=== PATIENT | male | born 1985 | race Caucasian/White ===

== ENCOUNTER 2021-02-14 13:09 | Emergency (ER) | payer OTHER, SELFPAY ==
--- NOTE | 2021-02-14 | ECG_ITS ---
Test Reason : CHEST PAIN Blood Pressure : / mmHG Vent. Rate : 076 BPM Atrial Rate : 076 BPM P-R Int : 118 ms QRS Dur : 088 ms QT Int : 380 ms P-R-T Axes : 025 050 047 degrees QTc Int : 427 ms Normal sinus rhythm Normal ECG No previous ECGs available Referred By: Generic ED Physician Electronically Signed By:Cesario King
--- NOTE | ~2021-02-14 | XR_ITS ---
EXAMINATION: XR CHEST CLINICAL INFORMATION: Chest pain COMPARISON: None TECHNIQUE: 2 views of the chest were obtained. FINDINGS: Mild cephalization of vasculature. No overt failure. No effusion. The mediastinal contours are within normal limits. XR/XR chest 2V IMPRESSION: Mild cephalization of the vasculature. No overt failure. No effusion. No infiltrate
[2021-02-14 13:29] VITALS: BP 155/79; PULSE 79; RESP 18; TEMP 36.4; O2SAT 97; BMI 48.7
--- NOTE | 2021-02-14 16:28 | ED.CHESTPAIN ---
HPI - Chest Pain General Chief Complaint: Chest Pain <JEROME Coats Last Filed: 02/14/21 16:46> Stated Complaint: severe Chest pain <JEROME Coats Last Filed: 02/14/21 16:46> Time Seen by Provider: 02/14/21 15:44 <JEROME Coats Last Filed: 02/14/21 16:46> Source: patient <JEROME Coats Last Filed: 02/14/21 16:46> Mode of arrival: ambulatory <JEROME Coats Last Filed: 02/14/21 16:46> History of Present Illness HPI narrative: 35-year-old male with no significant past medical history presenting to the ED complaining of substernal/left-sided chest pain worsening since yesterday. Pain described as sharp, worse with movement and deep inspiration. Also reports slight dry cough. Denies fever, chills, SOB, nausea/vomiting, abdominal pain, LE edema, calf pain, recent travel, history of blood clots. Does not take anticoagulation <JEROME Coats Last Filed: 02/14/21 16:46> MD complaint: chest pain and chest discomfort <JEROME Coats Last Filed: 02/14/21 16:46> Related Data Home Medications: Previous Rx's Medication Instructions Recorded acetaminophen 1,000 mg PO QID PRN #30 tab 02/14/21 ibuprofen 600 mg PO Q6H PRN #20 tab 02/14/21 <JEROME Coats Last Filed: 02/14/21 16:46> Allergies/Adverse Reactions: Allergies Allergy/AdvReac Type Severity Reaction Status Date / Time amoxicillin Allergy Swelling Verified 02/14/21 13:28 <JEROME Coats Last Filed: 02/14/21 16:46> Review of Systems Review of Systems: Constitutional: No Fever, No Chills, No Fatigue, No Malaise ENT/Mouth: No Ear Pain, No Nasal Congestion, No sore throat, No Rhinorrhea Eyes: No Eye Pain, No Vision Changes Cardiovascular: + Chest Pain, No SOB, No Dyspnea on Exertion, No Orthopnea, No Edema, No Palpitations Respiratory: + Cough, No Sputum, No Wheezing Gastrointestinal: No Nausea, No Vomiting, No Diarrhea, No Constipation, No Abdominal pain Musculoskeletal: No joint pain, No Myalgias, No Joint Swelling Skin: No Skin Lesions, No rash Neuro: No Weakness, No Numbness, No Dizziness, No Headache <JEROME Coats - Last Filed: 02/14/21 16:46> Yes all other systems are reviewed and are negative <JEROME Coats - Last Filed: 02/14/21 16:46> [facility] Past Medical History Attestation statement: The following information was validated with the patient. <JEROME Coats - Last Filed: 02/14/21 16:46> Social History Social History: Social History Advance Directives: No Advance Directives Information Provided: Yes <JEROME Coats Last Filed: 02/14/21 16:46> Physical Exam Vital Signs: Vital Signs: Last Vital Signs Temp 97.6 F 02/14/21 13:29 Pulse 79 02/14/21 16:59 Resp 17 02/14/21 16:59 BP 144/76 H 02/14/21 16:59 Pulse Ox 96 02/14/21 16:59 Body Mass Index 48.7 <JEROME Coats - Last Filed: 02/14/21 16:46> Vital Signs: Last Vital Signs Temp 97.6 F 02/14/21 13:29 Pulse 79 02/14/21 16:59 Resp 17 02/14/21 16:59 BP 144/76 H 02/14/21 16:59 Pulse Ox 96 02/14/21 16:59 Body Mass Index 48.7 <JEROME Hansen - Last Filed: 02/25/21 18:55> Const: General: cooperative, healthy appearing and no acute distress <JEROME Coats - Last Filed: 02/14/21 16:46> Orientation/consciousness: patient oriented x3 <JEROME Coats - Last Filed: 02/14/21 16:46> Limitations: no limitations <JEROME Coats - Last Filed: 02/14/21 16:46> HENMT: Head: Yes normal to inspection <JEROME Coats - Last Filed: 02/14/21 16:46> Ears: hearing grossly normal bilaterally <JEROME Coats - Last Filed: 02/14/21 16:46> General nose exam: Normal external nose present <Jazzmine Kalani [facility] Last Filed: 02/14/21 16:46> Face and sinus: Yes normal facial exam <Jazzminedayne Uriarte [facility] Last Filed: 02/14/21 16:46> Eyes: General: appearance normal, both eyes and all related structures <Jazzmine Kalani [facility] Last Filed: 02/14/21 16:46> EOM: EOMs intact bilaterally <Jazzminedayne Uriarte [place] - Last Filed: 02/14/21 16:46> Neck: Neck: Yes normal visual inspection and Yes no meningeal signs <Jazzmine Kalani [facility] Last Filed: 02/14/21 16:46> Chest: Chest palpation & inspection: no crepitus, tenderness (Substernal/left chest) and No rash <Jazzminedayne Uriarte [facility] Last Filed: 02/14/21 16:46> Resp: Effort & Inspection: normal respiratory effort <Jazzmine Uriarte [place] - Last Filed: 02/14/21 16:46> Auscultation: clear to auscultation bilaterally, no rales, no rhonchi and no wheezes <Jazzmine Kalani [facility] Last Filed: 02/14/21 16:46> Cardio: Rate: regular rate <Jazzminedayne Uriarte [facility] Last Filed: 02/14/21 16:46> Heart sounds: S1 normal heart sound present and S2 normal heart sound present <Jazzmine Kalani [facility] Last Filed: 02/14/21 16:46> GI: Inspection: Yes normal to inspection <Jazzmine Uriarte [place] - Last Filed: 02/14/21 16:46> Palpation (GI): Soft to palpation, nontender, no guarding and not rigid <Jzazmine Uriarte [place] - Last Filed: 02/14/21 16:46> : General: Yes no CVA tenderness <Jazzmine Uriarte [place] - Last Filed: 02/14/21 16:46> Back/Spine/Pelvis: Back: no CVA tenderness <Jazzmine Uriarte [place] - Last Filed: 02/14/21 16:46> Skin: Rashes: no rashes <Jazzmine Uriarte [place] - Last Filed: 02/14/21 16:46> Wounds: no wounds <JEROME Coats - Last Filed: 02/14/21 16:46> Neuro: General: patient oriented x3 and no meningeal signs <JEROME Coats - Last Filed: 02/14/21 16:46> Gait exam (Neuro): Normal gait present <JEROME Coats - Last Filed: 02/14/21 16:46> Extrem: Other: +1 bilateral lower extremity edema. No calf tenderness <JEROME Coats - Last Filed: 02/14/21 16:46> General: Yes normal to inspection <JEROME Coats - Last Filed: 02/14/21 16:46> Course Course Course Narrative: -1700--ED care transferred to [facility] pending labs and CXR. Dispo per results <JEROME Coats - Last Filed: 02/14/21 16:46> Case was signed out from physician accounting assistant kalani to follow chest x-ray results and re-evaluate and dispo patient who presents with left sided chest pain just below his breast that is reproducible with deep breath movement and palpation EKG was nondiagnostic with no acute ischemic change, chest x-ray did not reveal any acute pathology, Bn P was normal as was troponin, D-dimer was less than 200, no other acute lab pathology I re-evaluated the patient and his pain was easily reproducible in a specific spot hurt when I touched it, hurt when he moved it hurt when he took a deep breath, pain has been continuous for many hours but only with movement and patient is discharged with diagnosis costochondritis <JEROME Hansen - Last Filed: 02/25/21 18:55> MDM - Chest Pain MDM Narrative Medical decision making narrative: 35-year-old male with no significant past medical history presenting to the ED complaining of substernal/left-sided chest pain worsening since yesterday. Pain described as sharp, worse with movement and deep inspiration. On exam VSS, NAD, nontoxic appearing, chest pain reproducible on exam, lungs CTA, 1+ lower extremity edema, no calf tenderness. Concern for pneumonia vs costochondritis/MSK pain vs PE. R/o ACS although sx are atypical.. Low concern for CHF or viral syndrome. Plan: EKG, labs, CXR, reassess <JEROME Coats - Last Filed: 02/14/21 16:46> Medical Records Data Attestation: I reviewed the patient's medical records. <JEROME Coats - Last Filed: 02/14/21 16:46> Lab Data Attestation: I reviewed the patient's lab results. <JEROME Coats - Last Filed: 02/14/21 16:46> Result diagrams: : 02/14/21 16:28 02/14/21 16:28 <JEROME Coats - Last Filed: 02/14/21 16:46> Labs: Lab Results 02/14/21 02/14/21 02/14/21 Range/Units 16:28 16:28 16:28 WBC 8.7 (4.8-10.8) X10*3/uL RBC 4.28 L (4.60-5.80) X10*6/uL Hgb 13.4 L (14.0-18.0) g/dl Hct 40.0 L (42-52) % MCV 93.5 (80-98) fL MCH 31.3 (27.0-33.0) pg MCHC 33.5 (31.0-36.0) g/dl RDW 12.7 (11.0-16.0) % Plt Count 272 (160-400) X10*3/uL MPV 9.8 (9.4-12.4) fL Immature Gran % (Auto) 0.2 (0.0-0.4) % Neut % (Auto) 66.8 (45-73) % Lymph % (Auto) 23.4 (20-40) % Ware % (Auto) 5.6 (2-11) % Eos % (Auto) 3.5 (0-4) % Baso % (Auto) 0.5 (0-2) % Lymph # (Auto) 2.0 (1.2-4.9) X10*3/uL Ware # (Auto) 0.5 (0.1-1.2) X10*3/uL Eos # (Auto) 0.3 (0.0-0.4) X10*3/uL Baso # (Auto) 0.0 (0.0-0.2) X10*3/uL Abs Immat Gran (auto) 0.02 (0.00-0.03) X10*3/uL Absolute Neuts (auto) 5.8 (2.0-8.3) X10*3/uL Absolute Nucleated RBC 0.000 (0.0-0.012) X10*3/uL Nucleated RBC % (auto) 0.0 (0.0-0.2) /100WBC D-Dimer < 200 NG/ML Sodium 139 (135-145) mmol/L Potassium 4.7 (3.3-5.1) mmol/L Chloride 101 (96-108) mmol/L Carbon Dioxide 30 H (22-29) mmol/L Anion Gap 13 (12-20) BUN 9 (9-16) mg/dL Creatinine 0.64 (0.5-1.4) mg/dL Estim Creat Clear Calc 244.9 Estimated GFR > 60 Random Glucose 149 H (60-115) mg/dL Calcium 9.4 (8.4-10.2) mg/dL Total Bilirubin (0.0-1.0) mg/dL Direct Bilirubin (0.0-0.5) mg/dL AST (5-37) U/L ALT (0-40) U/L Alkaline Phosphatase (39-117) U/L Troponin I High Sens (<3.5-35.0) ng/L B-Natriuretic Peptide (<100) pg/mL Total Protein (6.5-8.0) g/dL Albumin (3.5-5.0) g/dL 02/14/21 02/14/21 Range/Units 16:28 16:28 WBC (4.8-10.8) X10*3/uL RBC (4.60-5.80) X10*6/uL Hgb (14.0-18.0) g/dl Hct (42-52) % MCV (80-98) fL MCH (27.0-33.0) pg MCHC (31.0-36.0) g/dl RDW (11.0-16.0) % Plt Count (160-400) X10*3/uL MPV (9.4-12.4) fL Immature Gran % (Auto) (0.0-0.4) % Neut % (Auto) (45-73) % Lymph % (Auto) (20-40) % Ware % (Auto) (2-11) % Eos % (Auto) (0-4) % Baso % (Auto) (0-2) % Lymph # (Auto) (1.2-4.9) X10*3/uL Ware # (Auto) (0.1-1.2) X10*3/uL Eos # (Auto) (0.0-0.4) X10*3/uL Baso # (Auto) (0.0-0.2) X10*3/uL Abs Immat Gran (auto) (0.00-0.03) X10*3/uL Absolute Neuts (auto) (2.0-8.3) X10*3/uL Absolute Nucleated RBC (0.0-0.012) X10*3/uL Nucleated RBC % (auto) (0.0-0.2) /100WBC D-Dimer NG/ML Sodium (135-145) mmol/L Potassium (3.3-5.1) mmol/L Chloride (96-108) mmol/L Carbon Dioxide (22-29) mmol/L Anion Gap (12-20) BUN (9-16) mg/dL Creatinine (0.5-1.4) mg/dL Estim Creat Clear Calc Estimated GFR Random Glucose (60-115) mg/dL Calcium (8.4-10.2) mg/dL Total Bilirubin 0.5 (0.0-1.0) mg/dL Direct Bilirubin 0.2 (0.0-0.5) mg/dL AST 30 (5-37) U/L ALT 55 H (0-40) U/L Alkaline Phosphatase 78 (39-117) U/L Troponin I High Sens < 3.5 (<3.5-35.0) ng/L B-Natriuretic Peptide 14 (<100) pg/mL Total Protein 7.8 (6.5-8.0) g/dL Albumin 4.3 (3.5-5.0) g/dL <JEROME Coats - Last Filed: 02/14/21 16:46> Lab Results 02/14/21 02/14/21 02/14/21 Range/Units 16:28 16:28 16:28 WBC 8.7 (4.8-10.8) X10*3/uL RBC 4.28 L (4.60-5.80) X10*6/uL Hgb 13.4 L (14.0-18.0) g/dl Hct 40.0 L (42-52) % MCV 93.5 (80-98) fL MCH 31.3 (27.0-33.0) pg MCHC 33.5 (31.0-36.0) g/dl RDW 12.7 (11.0-16.0) % Plt Count 272 (160-400) X10*3/uL MPV 9.8 (9.4-12.4) fL Immature Gran % (Auto) 0.2 (0.0-0.4) % Neut % (Auto) 66.8 (45-73) % Lymph % (Auto) 23.4 (20-40) % Ware % (Auto) 5.6 (2-11) % Eos % (Auto) 3.5 (0-4) % Baso % (Auto) 0.5 (0-2) % Lymph # (Auto) 2.0 (1.2-4.9) X10*3/uL Ware # (Auto) 0.5 (0.1-1.2) X10*3/uL Eos # (Auto) 0.3 (0.0-0.4) X10*3/uL Baso # (Auto) 0.0 (0.0-0.2) X10*3/uL Abs Immat Gran (auto) 0.02 (0.00-0.03) X10*3/uL Absolute Neuts (auto) 5.8 (2.0-8.3) X10*3/uL Absolute Nucleated RBC 0.000 (0.0-0.012) X10*3/uL Nucleated RBC % (auto) 0.0 (0.0-0.2) /100WBC D-Dimer < 200 NG/ML Sodium 139 (135-145) mmol/L Potassium 4.7 (3.3-5.1) mmol/L Chloride 101 (96-108) mmol/L Carbon Dioxide 30 H (22-29) mmol/L Anion Gap 13 (12-20) BUN 9 (9-16) mg/dL Creatinine 0.64 (0.5-1.4) mg/dL Estim Creat Clear Calc 244.9 Estimated GFR > 60 Random Glucose 149 H (60-115) mg/dL Calcium 9.4 (8.4-10.2) mg/dL Total Bilirubin (0.0-1.0) mg/dL Direct Bilirubin (0.0-0.5) mg/dL AST (5-37) U/L ALT (0-40) U/L Alkaline Phosphatase (39-117) U/L Troponin I High Sens (<3.5-35.0) ng/L B-Natriuretic Peptide (<100) pg/mL Total Protein (6.5-8.0) g/dL Albumin (3.5-5.0) g/dL 02/14/21 02/14/21 Range/Units 16:28 16:28 WBC (4.8-10.8) X10*3/uL RBC (4.60-5.80) X10*6/uL Hgb (14.0-18.0) g/dl Hct (42-52) % MCV (80-98) fL MCH (27.0-33.0) pg MCHC (31.0-36.0) g/dl RDW (11.0-16.0) % Plt Count (160-400) X10*3/uL MPV (9.4-12.4) fL Immature Gran % (Auto) (0.0-0.4) % Neut % (Auto) (45-73) % Lymph % (Auto) (20-40) % Ware % (Auto) (2-11) % Eos % (Auto) (0-4) % Baso % (Auto) (0-2) % Lymph # (Auto) (1.2-4.9) X10*3/uL Ware # (Auto) (0.1-1.2) X10*3/uL Eos # (Auto) (0.0-0.4) X10*3/uL Baso # (Auto) (0.0-0.2) X10*3/uL Abs Immat Gran (auto) (0.00-0.03) X10*3/uL Absolute Neuts (auto) (2.0-8.3) X10*3/uL Absolute Nucleated RBC (0.0-0.012) X10*3/uL Nucleated RBC % (auto) (0.0-0.2) /100WBC D-Dimer NG/ML Sodium (135-145) mmol/L Potassium (3.3-5.1) mmol/L Chloride (96-108) mmol/L Carbon Dioxide (22-29) mmol/L Anion Gap (12-20) BUN (9-16) mg/dL Creatinine (0.5-1.4) mg/dL Estim Creat Clear Calc Estimated GFR Random Glucose (60-115) mg/dL Calcium (8.4-10.2) mg/dL Total Bilirubin 0.5 (0.0-1.0) mg/dL Direct Bilirubin 0.2 (0.0-0.5) mg/dL AST 30 (5-37) U/L ALT 55 H (0-40) U/L Alkaline Phosphatase 78 (39-117) U/L Troponin I High Sens < 3.5 (<3.5-35.0) ng/L B-Natriuretic Peptide 14 (<100) pg/mL Total Protein 7.8 (6.5-8.0) g/dL Albumin 4.3 (3.5-5.0) g/dL <JEROME Hansen - Last Filed: 02/25/21 18:55> ECG Data ECG #1: Attestation: I personally reviewed and interpreted this ECG as follows: <JEROME Coats - Last Filed: 02/14/21 16:46> ECG interpretation date: 02/14/21 <JEROME Coats - Last Filed: 02/14/21 16:46> ECG interpretation time: 13:21 <JEROME Coats Last Filed: 02/14/21 16:46> Prior ECG tracings: not available for review <JEROME Coats Last Filed: 02/14/21 16:46> Interpretation: EKG normal sinus rhythm with a rate of 76. Nonischemic/no STEMI. <JEROME Coats Last Filed: 02/14/21 16:46> Discharge Plan Discharge Clinical Impression: Atypical chest pain <JEROME Coats Last Filed: 02/14/21 16:46> Patient Disposition: Home, Self-Care <JEROME Coats - Last Filed: 02/14/21 16:46> Additional Instructions: Our testing did not show any evidence of heart attack or blood clot or any dangerous condition This is most likely an inflammation of muscle or cartilage that we would treat with anti-inflammatory Motrin and Tylenol Return to the ER any time for difficulty breathing any changed or worse condition or any concerns <JEROME Coats - Last Filed: 02/14/21 16:46> Prescriptions: New acetaminophen 500 mg tablet 1,000 mg PO QID PRN (Reason: pain) Qty: 30 RF: 0 ibuprofen 600 mg tablet 600 mg PO Q6H PRN (Reason: pain) Qty: 20 RF: 0 <JEROME Coats - Last Filed: 02/14/21 16:46> Interventions: ED Discharge Assessment Last Done: 02/14/21 20:20 <JEROME Coats - Last Filed: 02/14/21 16:46> Discharge Date/Time: 02/14/21 20:20 <JEROME Coats - Last Filed: 02/14/21 16:46>
[2021-02-14 16:34] VITALS: BP 144/76; PULSE 87; RESP 14; O2SAT 96
[2021-02-14 16:34] LABS: MANUAL DIFF FLAG NO
[2021-02-14 16:36] LABS: Basophils Percent Auto 0.5 % (0-2); Eosinophils Absolute Auto 0.3 X10*3/uL (0.0-0.4); Eosinophils Percent Auto 3.5 % (0-4); Hemoglobin 13.4 g/dl (14.0-18.0); Imm Gran Abs Auto 0.02 X10*3/uL (0.00-0.03); Imm Gran Pct Auto 0.2 % (0.0-0.4); Lymphocytes Percent Auto 23.4 % (20-40); Mean Corpuscular HGB Conc 33.5 g/dl (31.0-36.0); Mean Corpuscular Hemoglobin 31.3 pg (27.0-33.0); Mean Corpuscular Volume 93.5 fL (80-98); Mean Platelet Volume 9.8 fL (9.4-12.4); Monocytes Absolute Auto 0.5 X10*3/uL (0.1-1.2); Monocytes Percent Auto 5.6 % (2-11); Neutrophils Absolute Auto 5.8 X10*3/uL (2.0-8.3); Neutrophils Percent Auto 66.8 % (45-73); Platelet Count 272 X10*3/uL (160-400); Red Blood Count 4.28 X10*6/uL (4.60-5.80); Red Cell Distribution Width 12.7 % (11.0-16.0); White Blood Count 8.7 X10*3/uL (4.8-10.8)
[2021-02-14 16:49] LABS: D Dimer < 200 NG/ML
[2021-02-14 16:59] VITALS: BP 144/76; PULSE 79; RESP 17; O2SAT 96
[2021-02-14 17:04] LABS: Anion Gap 13 (12-20); Blood Urea Nitrogen 9 mg/dL (9-16); Calcium 9.4 mg/dL (8.4-10.2); Carbon Dioxide 30 mmol/L (22-29); Chloride 101 mmol/L (96-108); Creatinine Clr Calc Pharmacy 244.9; Estimated Glomerular Filt Rate > 60; Glucose Random 149 mg/dL (60-115); Potassium 4.7 mmol/L (3.3-5.1); Sodium 139 mmol/L (135-145)
[2021-02-14 17:06] LABS: Alanine Aminotransferase 55 U/L (0-40); Albumin Level 4.3 g/dL (3.5-5.0); Alkaline Phosphatase 78 U/L (39-117); Aspartate Amino Transferase 30 U/L (5-37); Bilirubin Direct 0.2 mg/dL (0.0-0.5); Bilirubin Total 0.5 mg/dL (0.0-1.0); Total Protein 7.8 g/dL (6.5-8.0)
[2021-02-14 17:11] LABS: B Type Natriuretic Peptide 14 pg/mL (<100); Troponin-I High Sensitivity < 3.5 ng/L (<3.5-35.0)
[2021-02-14] MEDS: Ketorolac Tromethamine 30 MG/ML VIAL IM (20:16)
[2021-02-14] MEDS: Acetaminophen 325 MG TABLET 975 MG PO (20:16)
== END 2021-02-14 20:20 | disposition home or self-care (01) ==
PROVIDERS: Physician Assistant; Emergency Provider Emergency Medicine
DX: R07.89 Other chest pain (principal)
CPT/HCPCS: 36415; 71046; 80048; 80076; 83880; 84484; 85025; 85379; 93005; 96372; 99284; J1885